=== PATIENT | male | born 1985 | race Caucasian/White ===

== ENCOUNTER 2018-11-15 10:30 | Emergency (ER) | payer MEDICAID, OTHER ==
[~2018-11-15] VITALS: Ht 188 cm; Wt 86.2 kg
[2018-11-15] MEDS ORDERED: predniSONE 10 MG TABLET ONE (12:56)
[2018-11-15] MEDS: predniSONE 20 MG TABLET PO ONE (12:56)
[2018-11-15] MEDS ORDERED: predniSONE 50 MG TABLET ONE (12:57)
--- NOTE | 2018-11-15 14:14 | NUR ---
Patient discharged to home in stable conditon. Written and verbal after care instructions given. Patient verbalizes understanding of instructions. PT D/C W/ PRSECRIPTIONS. ALL BELONGINGS W/ PT. PT SELF-AMBULATED W/O DIFFICULTY.
[2018-11-15 14:15] VITALS: BP 122/70
== END 2018-11-15 14:16 | disposition home or self-care (01) ==
LOC: ER 10:30
DX: J32.9 Chronic sinusitis, unspecified (principal)
CPT/HCPCS: 70486; 71045; 99284; J7512 ×2; A4663

== ENCOUNTER 2019-04-25 14:47 | Emergency (ER) | payer OTHER ==
[~2019-04-25] VITALS: Ht 188 cm; Wt 84.8 kg
--- NOTE | 2019-04-25 15:01 | NUR ---
PT RECEIVED AMBULATORY FR HOME, C/O RIGHT EAR DISCOMFORT SINCE YESTERDAY. STATES MUFFLED HEARING ON RIGHT EAR. DENIES TINNITUS, DENIES CHANGE OF BALANCE, DENIES NVD, DENIES PAIN +PREVIOUS SINUSITIS FROM PAST ER VISIT 11/15/2018 WHICH RESOLVED DENIES USE OF ANY MEDS NOR INTERVENTIONS MD AT BEDSIDE FOR HISTORY AND PHYSICAL KEPT COMFORTABLE AND MONITORED ACCORDINGLY
--- NOTE | 2019-04-25 15:30 | NUR ---
Patient discharged to home in stable conditon. Written and verbal after care instructions given. Patient verbalizes understanding of instructions. denies pain, ambulatory.
[2019-04-25 15:33] VITALS: BP 124/71
== END 2019-04-25 15:34 | disposition home or self-care (01) ==
LOC: ER 14:47
DX: H66.91 Otitis media, unspecified, right ear (principal)
CPT/HCPCS: A4663

== ENCOUNTER 2019-11-01 18:44 | Emergency (ER) | payer OTHER ==
[~2019-11-01] VITALS: Ht 188 cm; Wt 90.7 kg
--- NOTE | 2019-11-01 19:00 | NUR ---
PT IS IN ROOM #1B. DR HERNANDEZ EVALUTED THE PT.
--- NOTE | 2019-11-01 19:05 | NUR ---
RECEIVED HAND OFF AND SBAR FR OUTGOING DAY SHIFT RN PT O2SAT AT 100% RA MONITORED ACCORDINGLY KEPT WARM DRY AND COMFORTABLE
--- NOTE | 2019-11-01 19:32 | NUR ---
Patient discharged to home in stable conditon. Written and verbal after care instructions given. Patient verbalizes understanding of instructions. AMBULATORY W/ STABLE GAIT ALL BELONGINGS W/ PT
[2019-11-01 19:33] VITALS: BP 122/78
== END 2019-11-01 19:33 | disposition home or self-care (01) ==
LOC: ER 18:44
DX: J20.9 Acute bronchitis, unspecified (principal); B35.3 Tinea pedis
CPT/HCPCS: A4663

== ENCOUNTER 2020-01-11 08:53 | Emergency (ER) | payer OTHER ==
[~2020-01-11] VITALS: Ht 188 cm; Wt 90.7 kg
--- NOTE | 2020-01-11 09:15 | NUR ---
PT IS A/OX4, PRESENTS TO THE ED C/O C/P AND ABD PAIN X 5 DAYS. PT REPORTS HE RECENTLY TRANVELED TO [place] AND RETURNED 4 DAYS AGO (01/07/20). VSS. PT DENIES FEVER, SOB, DIZZINESS, HEADACHE, N/V/D.
--- NOTE | 2020-01-11 09:20 | NUR ---
@bedside, MSE in progress
--- NOTE | 2020-01-11 09:22 | NUR ---
Patient discharged to home in stable condition & steady gait. Written and verbal after care instructions given to patient. Patient verbalized understanding & compliance of instructions.
== END 2020-01-11 09:22 | disposition home or self-care (01) ==
LOC: ER 08:53
DX: R07.89 Other chest pain (principal)
CPT/HCPCS: 93005; A4663